=== PATIENT | female | born 1985 | race Caucasian/White ===

== ENCOUNTER 2022-04-04 17:23 | Emergency (ER) | payer OTHER, SELFPAY ==
[2022-04-04 17:26] VITALS: BP 155/99; PULSE 106; RESP 20; TEMP 36.6; O2SAT 100
--- NOTE | 2022-04-04 17:29 | ED.URI ---
HPI - URI/Sore Throat General Chief Complaint: Upper Respiratory Infection Stated Complaint: sore throat, ear pain Time Seen by Provider: 04/04/22 17:29 Source: patient and RN notes reviewed History of Present Illness HPI Narrative: patient is a 37-year-old female who presents to urgent care with complaints of left ear pain and sinus congestion for the last couple days and then woke up with a sore throat last night. Patient states that she has been sucking on cough drops. 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 Denies any fevers, nausea or vomiting. No other acute complaints. No acute distress noted. Patient aware of the plan of care. Some parts of this dictation were generated by voice recognition software and may contain typographical and/or grammatical inaccuracies. Related Data Allergies Allergy/AdvReac Type Severity Reaction Status Date / Time cefprozil Allergy Intermediate Other Verified 03/25/19 12:17 amoxicillin Allergy Mild Rash Verified 03/25/19 12:17 Sulfa (Sulfonamide Allergy Unknown Rash Verified 03/25/19 12:17 Antibiotics) Review of Systems Review of Systems: CONSTITUTIONAL: Denies fever, chills, or sweats. EYES: Denies visual changes, redness, or discharge. ENT: Reports of sinus congestion, sore throat, bilateral otalgia CARDIOVASCULAR: Denies chest pain, palpitations, or edema. RESPIRATORY: Denies cough or dyspnea. GASTROINTESTINAL: Denies abdominal pain, nausea, vomiting, or diarrhea. GENITOURINARY: Denies dysuria or hematuria. SKIN: Denies rash or itching. MUSCULOSKELETAL: Denies back pain, joint pain, or myalgia. NEUROLOGIC: Denies headache, numbness, or weakness. All other systems reviewed are negative, except as documented in HPI. PMFSH Comments At the time of my signature, I reviewed and agree with the nursing past medical, surgical, social, and family history. There is no relevant family history pertinent to the patient complaint. Exam Narrative: GENERAL: This is a well-nourished, well-developed patient, in no apparent distress. HEAD: normocephalic, atraumatic. EYES: PERRL. Sclera clear/white. Vision is grossly intact. EARS: External ears normal, auditory canals clear and without drainage, TMs normal without perforation. Hearing grossly intact. NOSE: External nose normal with no obvious nasal discharge, nares without redness, no rhinorrhea. THROAT: Mucous membranes moist, moderate erythema in the posterior pharynx with moderate postnasal drainage without exudate or ulceration. NECK: Neck supple, non-tender without lymphadenopathy, masses or thyromegaly. CARDIOVASCULAR: Regular rate and rhythm without murmurs, gallops, or rubs. RESPIRATORY: Clear to auscultation. Breath sounds equal bilaterally. No wheezes, rales, or rhonchi. SKIN: warm, intact with no suspicious lesions or rash, good texture and turgor. NEURO: awake, alert, and oriented to person, place and time. There were no obvious focal neurologic abnormalities. EXTREMITIES: No clubbing, cyanosis, or edema. Course Course Level of Care: Express Care Visit Vital Signs Vital signs: Vital Signs Temperature 97.8 F 04/04/22 17:26 Pulse Rate 106 H 04/04/22 17:26 Respiratory Rate 20 04/04/22 17:26 Blood Pressure 155/99 H 04/04/22 17:26 Pulse Oximetry 100 04/04/22 17:26 Oxygen Delivery Room Air 04/04/22 17:26 Temperature 97.8 F 04/04/22 17:26 Pulse Rate 106 H 04/04/22 17:26 Respiratory Rate 20 04/04/22 17:26 Blood Pressure 155/99 H 04/04/22 17:26 Pulse Oximetry 100 04/04/22 17:26 Oxygen Delivery Room Air 04/04/22 17:26 reviewed- Patient is informed that they may have pre-hypertension or hypertension based on a blood pressure reading in the department. I recommend the patient call the primary care provider listed on their discharge instructions or a physician of their choice this week to arrange follow-up for further evaluation of possible pre-hypertension or hypertensionBarbie Alejo
== END 2022-04-04 17:55 | disposition home or self-care (01) ==
PROVIDERS: Emergency Provider Nurse Practitioner Family
DX: J02.9 Acute pharyngitis, unspecified (principal)
CPT/HCPCS: 87081; 87880; 99203; G0463